=== PATIENT | male | born 1945 | race Caucasian/White ===

== ENCOUNTER 2017-09-09 05:57 | Inpatient (IN) | payer MEDICARE, MEDICAID ==
[~2017-09-09] VITALS: Ht 167.6 cm; Wt 72.6 kg
--- NOTE | 2017-09-09 06:18 | NUR ---
AT PT BEDSIDE FOR MSE.
--- NOTE | 2017-09-09 06:33 | NUR ---
XRAY AT PT BEDSIDE
[2017-09-09 06:47] LABS: BASOPHILS # (AUTO) 0.1 K/uL (0.0-8.0); BASOPHILS % (AUTO) 1.1 % (0.0-2.0); EOSINOPHILS # (AUTO) 0.1 K/uL (0.0-0.7); EOSINOPHILS % (AUTO) 1.7 % (0.0-7.0); HEMATOCRIT 36.9 % (36.7-47.1); HEMOGLOBIN 12.5 g/dL (12.5-16.3); LYMPHOCYTES # (AUTO) 1.2 K/uL (20.0-40.0); LYMPHOCYTES % (AUTO) 15.9 % (20.5-51.5); MEAN CORPUSCULAR HGB CONC 34 g/dL (32.5-36.3); MEAN CORPUSCULAR VOLUME 85.3 fL (73.0-96.2); MONOCYTES # (AUTO) 0.7 K/uL (2.0-10.0); MONOCYTES % (AUTO) 8.9 % (0.0-11.0); NEUTROPHILS # (AUTO) 5.4 K/uL (1.8-8.9); NEUTROPHILS % (AUTO) 72.4 % (38.5-71.5); PLATELET COUNT (AUTO) 247 K/uL (152-348); RED BLOOD CELL COUNT(AUTO) 4.33 MIL/uL (4.06-5.63); WHITE BLOOD COUNT (AUTO) 7.5 K/uL (3.6-10.2)
--- NOTE | 2017-09-09 07:12 | NUR ---
Report given to Aria WILKINS. Care endorsed. Family at bedside. No acute distress noted. VSS at this time.
[2017-09-09] MEDS ORDERED: ALBUTEROL SULFATE 2.5 MG/3 ML NEBU NEB ONE (07:30)
--- NOTE | 2017-09-09 07:30 | NUR ---
PATIENT IS AWAKE AND ALERT IN NO DISTRESS.
[2017-09-09 07:31] LABS: CARBON DIOXIDE 25 mmol/L (21-32); CHLORIDE 103 mmol/L (98-107); CREATININE 1.1 mg/dL (0.6-1.3); GLUCOSE 125 mg/dL (74-106); POTASSIUM 3.8 mmol/L (3.5-5.1); UREA NITROGEN, BLOOD 18 mg/dL (7-18)
[2017-09-09 07:44] LABS: ALANINE AMINOTRANSFERASE 47 U/L (16-63); ALKALINE PHOSPHATASE 102 U/L (50-136); ASPARTATE AMINOTRANSFERASE 52 U/L (15-37); BILIRUBIN,DIRECT 0.2 mg/dL (0.0-0.2); BILIRUBIN,TOTAL 0.6 mg/dL (0.2-1.0); LIPASE 79 U/L (73-393); TOTAL PROTEIN, SERUM 7.9 g/dL (6.4-8.2)
[2017-09-09] MEDS ORDERED: ALBUTEROL SULFATE 2.5 MG/3 ML NEBU ONE (08:08)
[2017-09-09] MEDS ORDERED: FUROSEMIDE 20 MG/2 ML VIAL IV ONE (08:15)
[2017-09-09] MEDS ORDERED: ASPIRIN 325 MG TABLET PO ONE (08:15)
[2017-09-09] MEDS ORDERED: LEVOFLOXACIN 750MG/D5W 150 ML IV ONE ×2 (08:15→08:40)
[2017-09-09] MEDS ORDERED: FUROSEMIDE 40 MG/4 ML VIAL ONE (08:39)
[2017-09-09] MEDS ORDERED: ASPIRIN 325 MG TABLET ONE (08:40)
--- NOTE | 2017-09-09 08:54 | NUR ---
PATIENT AMBULATED TO BATHROOM WITH STEADY GAIT AND WAS ABLE TO PROVIDE A URINE SAMPLE THAT WAS SENT TO LAB,
--- NOTE | 2017-09-09 10:13 | NUR ---
AWAITING FOR BED PLACEMENT ON TELE FLOOR. PATIENT IS AWAKE AND ALERT WITH NO NEW COMPLAINTS. DENIES CHEST PAIN. HE WAS SITTING UP EATING BREAKFAST. ON CONTINUOUS CARDIAC MONITORING. HE HAS URINATED MULTIPLE TIMES.
[2017-09-09 10:43] LABS: *BILIRUBIN,URIN NEGATIVE (NEGATIVE); *BLOOD, URINE Trace-lysed (NEGATIVE); *CLARITY,URINE SLIGHTLY CLOUDY (CLEAR); *COLOR,URINE YELLOW (YELLOW); *KETONES,URINE NEGATIVE (NEGATIVE); *PROTEIN,URINE TRACE (NEGATIVE); *UROBILINOGEN,URINE 0.2 E.U./dl (NORMAL); LEUKOCYTE ESTERASE ,URINE NEGATIVE (NEGATIVE); NITRITE, URINE NEGATIVE (NEGATIVE); UGLUCOSE NEGATIVE (NEGATIVE)
[2017-09-09 10:59] LABS: BACTERIA,URINE NONE SEEN /HPF (NONE SEEN); MUCUS,URINE FEW /LPF (0-FEW); SQUAMOUS EPITHELIAL CELL,UR FEW /HPF (NONE SEEN)
--- NOTE | 2017-09-09 11:56 | NUR ---
PATIENTS EX WAS AT BEDSIDE. AWAITING BED PLACEMENT ON TELE FLOOR.
--- NOTE | 2017-09-09 14:45 | NUR ---
REPORT GIVEN TO NOMI WILKINS. PATIENT AWARE OF PENDING ADMISSION.
--- NOTE | 2017-09-09 15:30 | NUR ---
PATIENT WAS BROUGHT IN A WHEELCHAIR FROM THE ER. NO S/S OF DISTRESS NOTED. ADMISSION WAS TAKEN AND CHARTED, WELL BELONGINGS. IV INTACT. DR. DIAZ NOTIFIED AND WAITING FOR ADMISSION ORDERS.
[2017-09-09 15:52] VITALS: BP 124/73
[2017-09-09] MEDS ORDERED: ALBUTEROL SULFATE 2.5 MG/3 ML NEBU NEB PRN (17:15)
[2017-09-09] MEDS ORDERED: HYDROCODONE/APAP 5-325MG TABLET PO PRN (17:15)
[2017-09-09] MEDS ORDERED: TEMAZEPAM 15 MG CAPSULE PO PRN (17:15)
[2017-09-09] MEDS ORDERED: MAGNESIUM HYDROXIDE 30 ML LIQUID UDC PO PRN (17:15)
[2017-09-09] MEDS ORDERED: ONDANSETRON 4 MG/2 ML VIAL IV PRN (17:15)
[2017-09-09] MEDS ORDERED: ACETAMINOPHEN 325 MG TABLET PO PRN (17:15)
--- NOTE | 2017-09-09 18:40 | NUR ---
PATIENT COMPLAINED OF SOB, O2 VIA NC WAS PROVIDED FOR COMFORT, SAT 98%. WILL CONTINUE MONITORING.
--- NOTE | 2017-09-09 18:57 | NUR ---
PATIENT IN BED RESTING AT THIS MOMENT. NO SS OF DISTRESS NOTED. SAFETY AND COMFORT PROVIDED BY THE STAFF. WILL CONTINUE MONITORING.
--- NOTE | 2017-09-09 19:35 | NUR ---
PT RECEIVED IN BED, AWAKE. FRIEND AT BEDSIDE. A/OX4. ABLE TO MAKE NEEDS KNOWN. V/S STABLE. IN NO ACUTE DISTRESS. NO C/O PAIN AT THIS TIME. IV INTACT AND PATENT, HEP-LOCKED. ON 2L NC, TOLERATING WELL. AFEBRILE. 89 SINUS RHYTHM ON THE TELE MONITOR. SAFETY MEASURES IMPLEMENTED. CALL LIGHT WITHIN REACH.
[2017-09-09] MEDS: DOCUSATE SODIUM 100 MG CAPSULE PO SCH (21:19)
[2017-09-09 23:55] VITALS: BP 118/85
[2017-09-10 03:44] VITALS: BP 121/89
[2017-09-10] MEDS: PANTOPRAZOLE SODIUM 40 MG TABLET.DR PO SCH (06:02)
--- NOTE | 2017-09-10 06:39 | NUR ---
END OF SHIFT NOTES. PT SLEPT INTERMITTENTLY THROUGHOUT SHIFT. IN STABLE CONDITION. 87 SINUS RHYTHM ON THE TELE MONITOR. ON 2L NC, TOLERATING WELL. ALL NEEDS ATTENDED. SAFETY MAINTAINED. CALL LIGHT WITHIN REACH.
[2017-09-10 07:00] LABS: HEMOGLOBIN 12.5 g/dL (12.5-16.3); PLATELET COUNT (AUTO) 245 K/uL (152-348)
--- NOTE | 2017-09-10 07:00 | NUR ---
RECEIVED REPORT FROM CHIEF DRAFTER NURSE, PATIENT IN BED ASLEE, NO EVIDENCE OF DISTRESS NOTED AT THIS TIME, BED IN LOW POSITION, SIDE RAILS UP X2.
[2017-09-10 07:09] LABS: ALANINE AMINOTRANSFERASE 36 U/L (16-63); ALKALINE PHOSPHATASE 88 U/L (50-136); ASPARTATE AMINOTRANSFERASE 32 U/L (15-37); BILIRUBIN,TOTAL 0.6 mg/dL (0.2-1.0); CARBON DIOXIDE 29 mmol/L (21-32); CHLORIDE 105 mmol/L (98-107); CHOLESTEROL 169 mg/dL (<200); CREATININE 1.2 mg/dL (0.6-1.3); GLUCOSE 95 mg/dL (74-106); HDL CHOLESTEROL 35 mg/dL (40-60); MAGNESIUM 1.9 mg/dL (1.8-2.4); PHOSPHOROUS 3.9 mg/dL (2.5-4.9); POTASSIUM 4.1 mmol/L (3.5-5.1); TOTAL PROTEIN, SERUM 7.4 g/dL (6.4-8.2); TRIGLYCERIDES 92 MG/DL (30-150); UREA NITROGEN, BLOOD 21 mg/dL (7-18)
[2017-09-10 07:21] LABS: BASOPHILS # (AUTO) 0.1 K/uL (0.0-8.0); BASOPHILS % (AUTO) 1.2 % (0.0-2.0); EOSINOPHILS # (AUTO) 0.3 K/uL (0.0-0.7); EOSINOPHILS % (AUTO) 3.6 % (0.0-7.0); HEMATOCRIT 37.4 % (36.7-47.1); LYMPHOCYTES # (AUTO) 1.8 K/uL (20.0-40.0); LYMPHOCYTES % (AUTO) 21.5 % (20.5-51.5); MEAN CORPUSCULAR HEMOGLOBIN 28.7 uug (23.8-33.4); MEAN CORPUSCULAR HGB CONC 33 g/dL (32.5-36.3); MONOCYTES # (AUTO) 0.9 K/uL (2.0-10.0); MONOCYTES % (AUTO) 10.9 % (0.0-11.0); NEUTROPHILS # (AUTO) 5.2 K/uL (1.8-8.9); NEUTROPHILS % (AUTO) 62.8 % (38.5-71.5); RED BLOOD CELL COUNT(AUTO) 4.35 MIL/uL (4.06-5.63); WHITE BLOOD COUNT (AUTO) 8.3 K/uL (3.6-10.2)
[2017-09-10] MEDS: FUROSEMIDE 40 MG/4 ML VIAL IV SCH ×2 (08:22→21:47)
[2017-09-10] MEDS: ASPIRIN 81 MG TAB.CHEW PO SCH (08:22)
[2017-09-10 11:00] VITALS: BP 125/72
[2017-09-10 15:00] VITALS: BP 112/79
--- NOTE | 2017-09-10 15:15 | NUR ---
Patient became anxious to leave and stated that he wanted to leave AMA. After explaining to him what is going on, patient decided to stay. When asked if he smokes he replied yes and wanted a nicotine patch. Orders requested from DR. Grewal.
[2017-09-10] MEDS: NICOTINE 21 MG/24HR PATCH TD SCH (15:52)
--- NOTE | 2017-09-10 18:41 | NUR ---
PATIENT HAS BEEN COOPERATIVE WITH CARE TODAY. PATIENT HAS A LOT OF QUESTIONS ABOUT CHF AND MUCH INFORMATION HAS BEEN GIVEN. A DIETARY CONSULT HAS BEEN REQUESTED ALSO FOR FOLLOW UP. NO EVIDENCE OF DISTRESS AT THIS TIME, PATIENT IS UP IN BED, SIDE RAILS UP X2, BED IN LOW POSITION.
[2017-09-10 19:30] VITALS: BP 124/91
--- NOTE | 2017-09-10 19:35 | NUR ---
PT RECEIVED IN BED, AWAKE. A/OX3. ABLE TO MAKE NEEDS KNOWN. V/S STABLE. IN NO ACUTE DISTRESS. NO C/O PAIN AT THIS TIME. PT ON RA, TOLERATING WELL. AFEBRILE. IV INTACT AND PATENT, HEP-LOCKED. SINUS TACHYCARDIA AT 104 ON THE TELE MONITOR. PT VERBALIZES THAT HE WAS TOLD MD WOULD VISIT HIM. PT EXPRESSES CONCERNS ABOUT DIET. MD AWARE. SAFETY MEASURES IMPLEMENTED. CALL LIGHT WITHIN REACH.
[2017-09-10] MEDS ORDERED: ATORVASTATIN 10 MG TABLET PO SCH (21:00)
[2017-09-10] MEDS: DOCUSATE SODIUM 100 MG CAPSULE PO SCH (21:45)
[2017-09-11 04:00] VITALS: BP 118/48
[2017-09-11] MEDS: PANTOPRAZOLE SODIUM 40 MG TABLET.DR PO SCH (06:14)
--- NOTE | 2017-09-11 06:47 | NUR ---
END OF SHIFT NOTES. PT SLEPT INTERMITTENTLY THROUGHOUT SHIFT. IN STABLE CONDITION. IV INTACT AND PATENT. ON RA, TOLERATING WELL. SINUS TACHY ON THE TELE MONITOR. ALL NEEDS ATTENDED. SAFETY MAINTAINED. CALL LIGHT WITHIN REACH.
[2017-09-11 08:00] VITALS: BP 106/61
--- NOTE | 2017-09-11 08:00 | NUR ---
Awake, alert, oriented x 3, ambulatory. Denies shortness of breath
[2017-09-11] MEDS: NICOTINE 21 MG/24HR PATCH TD SCH (08:59)
[2017-09-11] MEDS: ASPIRIN 81 MG TAB.CHEW PO SCH (08:59)
[2017-09-11] MEDS ORDERED: FUROSEMIDE 20 MG/2 ML VIAL IV SCH (09:00)
[2017-09-11 12:00] VITALS: BP 122/72
[2017-09-11 15:38] VITALS: BP 117/80
[2017-09-11] MEDS ORDERED: PNEUMOCOCCAL 23-VAL P-SAC VAC 0.5 ML VIAL IM ONE (16:45)
[2017-09-11] MEDS ORDERED: INFLUENZA VACCINE 2017-2018 0.5 ML DISP.SYRIN IM ONE (16:45)
--- NOTE | 2017-09-11 18:20 | NUR ---
With discharge order to home. Seen by biometrics head, Dr. Francisco, to call and make appointment for follow up. Prescription and DC instruction given, verbalized understanding. Saline removed. Went home per ambulatory per request, in fair condition, not in distress, afebrile
== END 2017-09-11 18:20 | disposition home or self-care (01) | DRG 291 ==
LOC: ER 06:00 → TELE 14:47 → MED 09-10 23:17
PROVIDERS: ADMIT Internal Medicine; ATTEND Internal Medicine
DX: I11.0 Hypertensive heart disease with heart failure (principal); N17.0 Acute kidney failure with tubular necrosis; E11.65 Type 2 diabetes mellitus with hyperglycemia; I42.0 Dilated cardiomyopathy; F17.210 Nicotine dependence, cigarettes, uncomplicated; I50.23 Acute on chronic systolic (congestive) heart failure; E78.5 Hyperlipidemia, unspecified; I34.0 Nonrheumatic mitral (valve) insufficiency; I45.81 Long QT syndrome
CPT/HCPCS: 36415; 70030-TC; 83690; 83735; 84100; 84443; 85025; 85730; 87040; 87086; 90686; 90732; 93005; 93307; A4663; J1940; J1956